=== PATIENT | female | born 1985 | race American Indian/Alaskan Native ===

== ENCOUNTER 2021-01-17 09:57 | Emergency (ER) | payer SELFPAY ==
[2021-01-17] MEDS ORDERED: KETOROLAC 60 MG/2 ML INJ IM ONE (10:52)
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
[2021-01-17 13:55] VITALS: BP 100/66
== END 2021-01-17 13:55 | disposition home or self-care (01) ==
LOC: ED 09:57
DX: S06.0X0A Concussion without loss of consciousness, initial encounter (principal); S40.021A Contusion of right upper arm, initial encounter; S53.401A Unspecified sprain of right elbow, initial encounter; R42 Dizziness and giddiness; R55 Syncope and collapse; S20.211A Contusion of right front wall of thorax, initial encounter; Y08.89XA Assault by other specified means, initial encounter; Y93.89 Activity, other specified; Y92.89 Other specified places as the place of occurrence of the external cause; Y99.8 Other external cause status
CPT/HCPCS: 70450; 71101; 73070; 96372; 99284; J1885